=== PATIENT | male | born 1955 | race African-American/Black ===

== ENCOUNTER 2021-06-09 23:26 | Emergency (ER) | payer MEDICAID ==
[~2021-06-09] VITALS: Ht 172.7 cm; Wt 105.0 kg
[2021-06-10] MEDS ORDERED: IBUPROFEN 600MG TABLET PO ONE (01:15)
[2021-06-10 01:49] LABS: CLARITY URINE CLEAR (CLEAR); COLOR URINE YELLOW (YELLOW); KETONES URINE NEGATIVE (NEGATIVE); LEUKOCYTE ESTERASE URINE NEGATIVE (NEGATIVE); NITRITE URINE NEGATIVE (NEGATIVE); OCCULT BLOOD URINE NEGATIVE (NEGATIVE); PH URINE 7.5 (4.5-8.0); PROTEIN URINE TRACE (NEGATIVE); SPECIFIC GRAVITY URINE 1.023 (1.005-1.030)
[2021-06-10] MEDS ORDERED: AMOX-424 MT (02:14)
[2021-06-10 02:47] VITALS: BP 126/78
== END 2021-06-10 02:49 | disposition home or self-care (01) ==
LOC: ER 23:26
DX: J18.9 Pneumonia, unspecified organism (principal); Z20.822 Contact with and (suspected) exposure to COVID-19
CPT/HCPCS: 71045; 81003; 93005; 99285; C9803; U0003; U0005